=== PATIENT | male | born 1940 | race Caucasian/White ===

== ENCOUNTER 2024-06-07 07:45 | Day surgery (SDC) | payer OTHER, MEDICARE ==
[2024-06-07] VITALS (12 sets, daily range): BP systolic 101–155; BP diastolic 56–100
[~2024-06-07] VITALS: Ht 172.7 cm; Wt 129.0 kg
[~2024-06-07 07:45] MED LIST: Adipex-P37.5 M1 PO; Aspirin325 MG PO; C COMPLEX1000 M1 PO; CINNAMON EXTRA500 MG PO; FISH OIL PO; HYDROCHLOROTH12.5 MG PO; LISI20 PO; MOUNJARO2.5 MG/0.5 SC; MULVITA PO; POTASSIUM PO; TOPI25 PO; VITAMIN D310 MC4 PO; Vitamin B-12100 MCG PO
[2024-06-07] MEDS ORDERED: OxyCODONE HCL 10 MG TABCR PO SCH (08:00)
[2024-06-07] MEDS ORDERED: Acetaminophen 500 MG Tab PO SCH ×2 (08:00→16:00)
[2024-06-07] MEDS ORDERED: Chlorhexidine Mouth Care 15 ML UDC MT SCH (08:00)
[2024-06-07] MEDS ORDERED: Tranexamic Acid 1,000 MG in NS 100 ML IV SCH (08:00)
[2024-06-07] MEDS ORDERED: CeFAZolin Sodium 3,000 MG in NS 100 ML IV SCH ×2 (08:00→18:00)
[2024-06-07] MEDS ORDERED: Lactated Ringer's 1,000 ML IV SCH ×2 (08:00→10:10)
[2024-06-07] MEDS ORDERED: Tranexamic Acid 100 ML IV SCH (08:05)
[2024-06-07] MEDS ORDERED: Ropivacaine 0.5% HCl/Pf 123.125 MG,EPINEPHrine HCL 0.25 MG,Clonidine HCl/Pf 40 MCG in N... INFIL SCH (08:10)
[2024-06-07] MEDS ORDERED: Midazolam HCl 1MG / ML 2ML Vial ONE (08:52)
[2024-06-07] MEDS ORDERED: OxyCODONE HCL 5 MG TAB PO PRN ×2 (09:30)
[2024-06-07] MEDS ORDERED: Promethazine HCl 25 MG Tab PO PRN (09:30)
[2024-06-07] MEDS ORDERED: Prochlorperazine Edisylate 10 mg Vial IV PRN (09:30)
[2024-06-07] MEDS ORDERED: Bisacodyl 10 MG Supp PR PRN (09:35)
[2024-06-07] MEDS ORDERED: HYDROmorphone HCl/Pf 1MG SYR IV PRN (09:35)
[2024-06-07] MEDS ORDERED: DiphenhydrAMINE HCL 25 MG Cap PO PRN (09:35)
[2024-06-07] MEDS ORDERED: Magnesium Hydroxide Conc 10 ML UDC PO PRN (09:35)
[2024-06-07] MEDS ORDERED: Metoclopramide HCl 5MG / ML 2ML Vial IV PRN (09:40)
[2024-06-07] MEDS ORDERED: Ondansetron HCl 2 MG / ML 2ML Vial IV PRN (09:40)
[2024-06-07] MEDS ORDERED: Phenylephrine HCl 100 MCG/ML-NS 10MLSYR (1MG/10ML) ONE ×2 (10:27→11:11)
[2024-06-07] MEDS ORDERED: ePHEDrine Sulfate 50 MG/ML 1ML Injection ONE (10:27)
[2024-06-07] MEDS ORDERED: Ondansetron HCl 2 MG / ML 2ML Vial ONE (10:28)
[2024-06-07] MEDS ORDERED: Dexamethasone Sod Phos 10 MG/ML 1ML VIAL ONE (10:28)
[2024-06-07] MEDS ORDERED: propofoL 20 ML IV ONE ×2 (10:43→11:15)
[2024-06-07] MEDS ORDERED: Ketorolac Tromethamine 30mg Vial ONE (11:38)
--- NOTE | 2024-06-07 12:36 | NUR ---
TRANSFER TO UNIT AFTER RECEIVING REPORT FROM DRILLING ENGINEERING MANAGER, PATIENT TRANSFERRED TO UNIT AT APPROX 1230. PATIENT ALERT - COMMUNICATING NEEDS EFFECTIVELY. FOLLOWS COMMANDS. S/P L HO W/ SPINAL - PATIENT UNABLE TO WIGGLE TOES, DENIES SENSATION TO BLE. PPP. CAP REFILL <3 SECONDS. DENIES PAIN. VSS. ON ROOM AIR, SATs >90%. AQUACEL DRESSING C/D/I. DENIES N/V - SMALL SNACKS AND WATER WITHIN REACH. CALL LIGHT IN REACH.
--- NOTE | 2024-06-07 16:10 | NUR ---
SHIFT SUMMARY NO ACUTE CHANGES SINCE ARRIVAL TO UNIT. PATIENT REMAINS ALERT AND ORIENTED X4. COMMUNICATES NEEDS EFFECTIVELY. S/P L HO W/ SPINAL - ABLE TO WIGGLE TOES AND MOVE BLE. DOES REPORT NUMBNESS/TINGLING TO BLE. VSS. DENIES PAIN - POLAR PACK IN PLACE. WORKED WITH PHYSICAL THERAPY - RECOMMENDING FURTHER TREATMENT PRIOR TO DC HOME. UP WITH SBA FWW GB - GAIT WEAK. AQUACEL DRESSING C/D/I. AWAITING SPONTANEOUS POST OP VOID - BLADDER SCAN PERFORMED THIS AFTERNOON SHOWING 272ML. TOLERATING PO INTAKE - IV SALINE LOCKED. CURRENTLY SITTING UP IN RECLINER CHAIR. FAMILY AT BEDSIDE. CALL LIGHT IN REACH. REPORT GIVEN TO ТАТЬЯНА LILLY TO ASSUME CARE AT THIS TIME.
[2024-06-07] MEDS ORDERED: Ketorolac Tromethamine 15mg Vial IV SCH (18:00)
[2024-06-07] MEDS ORDERED: Docusate Sodium 100 MG Cap PO SCH (21:00)
[2024-06-08 05:01] VITALS: BP 135/66
[2024-06-08 05:53] LABS: BASOPHILS ABSOLUTE AUTO 0.02 K/mm3 (0.00-0.23); BASOPHILS PERCENT AUTO 0 % (0-2); EOSINOPHILS ABSOLUTE AUTO 0.01 K/mm3 (0.00-0.68); EOSINOPHILS PERCENT AUTO 0 % (0-6); Hematocrit 32.2 % (37.0-53.0); Hemoglobin 10.9 g/dL (13.5-17.5); IMMATURE GRAN ABSOLUTE AUTO 0.06 K/mm3 (0.00-0.10); IMMATURE GRAN PERCENT AUTO 0 % (0-1); LYMPHOCYTES ABSOLUTE AUTO 1.78 K/mm3 (0.84-5.20); LYMPHOCYTES PERCENT AUTO 13 % (21-46); MONOCYTES ABSOLUTE AUTO 1.38 K/mm3 (0.16-1.47); MONOCYTES PERCENT AUTO 10 % (4-13); Mean Corpuscular HGB 32.6 pg (26.0-34.0); Mean Corpuscular HGB Conc 33.9 g/dL (31.5-36.5); Mean Corpuscular Volume 96 fL (80-100); Mean Platelet Volume 10.5 fL (9.1-12.4); NEUTROPHILS ABSOLUTE AUTO 10.98 K/mm3 (1.96-9.15); NEUTROPHILS PERCENT AUTO 77 % (41-73); Platelet Count 228 K/mm3 (150-400); RDW Coefficient Variation 12.2 % (11.7-14.2); RDW Standard Deviation 42.3 fL (35.1-46.3); Red Blood Cell Count 3.34 M/mm3 (4.30-5.90); White Blood Cell Count 14.23 K/mm3 (4.00-11.30)
--- NOTE | 2024-06-08 06:17 | NUR ---
SHIFT SUMMARY POD 1 L HO. NO ACUTE CHANGES. VSS. TOLERATING ORALS. AQUACEL C/D/I. PT REPORTS PAIN TOLERABLE c TYLENOL PER EMAR, POLAR PACK IN USE. AMBULATES USING FWW c GB & SBA. ANTICIPATED TO WORK c PHYSCIAL THERAPY THEN DISCHARGE HOME LATER TODAY. PT DRESSED, RESTING IN CHAIR, CALL LIGHT IN REACH.
[2024-06-08 06:27] LABS: Bun/Creatinine Ratio 24.8 (12.0-20.0); Calcium, Blood 8.4 mg/dL (8.5-10.1); Creatinine, Blood 1.21 mg/dL (0.60-1.20); Potassium, Blood 4.3 mmol/L (3.5-5.5)
[2024-06-08 07:47] VITALS: BP 127/68
[2024-06-08] MEDS ORDERED: ELIQUIS2.5 MG PO (08:14)
--- NOTE | 2024-06-08 08:59 | NUR ---
DISCHARGE NOTE PATIENT DC'd TO PERSONAL VEHICLE VIA [employer] AT APPROX 0855. PATIENT POD 1 L HO. VSS. PAIN MANAGED WITH PRESCRIBED THERAPY. WORKED WITH PHYSICAL THERAPY THIS MORNING - SBA WITH PATRICIA GB. AQUACEL AND LEXIE WRAP C/D/I - NO SHADOWING NOTED. AQUACEL DRESSING PROVIDED FOR INCISION CARE AT HOME. TOLERATING REGULAR DIET. VOIDING. WRITTEN AND VERBAL EDUCATION PROVIDED TO PATIENT AND HIS - BOTH STATE UNDERSTANDING. IV REMOVED. PERSONAL BELONGINGS WITH PATIENT, INCLUDING POLAR PACK.
[2024-06-08] MEDS ORDERED: Multivitamins 1 Tab PO SCH (09:00)
[2024-06-08] MEDS ORDERED: Topiramate 25 MG Tab PO SCH (09:00)
[2024-06-08] MEDS ORDERED: Lisinopril 20 MG Tab PO SCH (09:00)
[2024-06-08] MEDS ORDERED: HydroCHLOROthiazide 25 mg Tab PO SCH (09:00)
[2024-06-08] MEDS ORDERED: Apixaban 5 MG Tab PO SCH (09:00)
[2024-06-08] MEDS ORDERED: Cholecalciferol 400 unit Tab PO SCH (09:00)
[2024-06-08] MEDS ORDERED: Cyanocobalamin 100 MCG Tab PO SCH (09:00)
[2024-06-08] MEDS ORDERED: Ascorbic Acid 500 MG Tab PO SCH (09:00)
== END 2024-06-08 08:50 | disposition home or self-care (01) ==
LOC: ORSCMMR 07:45 → ORD 09:15 → ORSCMMR 09:15 → ORD 10:15 → SURS 12:19 → ORSCMMR 06-08 08:50
PROVIDERS: Orthopaedic Surgery
PROC: 0SRB0JZ Replacement of Left Hip Joint with Synthetic Substitute, Open Approach (ICD-10-PCS; principal; 2024-06-07 09:15)
DX: M16.12 Unilateral primary osteoarthritis, left hip (principal); I10 Essential (primary) hypertension; E11.9 Type 2 diabetes mellitus without complications; Z79.85 Long-term (current) use of injectable non-insulin antidiabetic drugs; Z79.899 Other long term (current) drug therapy; E66.01 Morbid (severe) obesity due to excess calories; Z68.41 Body mass index [BMI] 40.0-44.9, adult
CPT/HCPCS: 36415; 72170; 80048; 82947; 85025; 97110; 97116; 97161; 97530; A9270; C1776; J0171; J0690; J0735; J1100; J1885; J2250; J2371; J2405; J2704; J2795; J7120